=== PATIENT | male | born 1955 | race Caucasian/White ===

== ENCOUNTER 2019-10-26 17:28 | Emergency (ER) | payer MEDICARE ==
--- NOTE | 2019-10-26 17:51 | ERPHSYRPT ---
- History of Present Illness Time Seen by Provider: 10/26/19 17:40 Source: patient Exam Limitations: no limitations Patient Subjective Stated Complaint: pt here for pain to left rib area today, sudden onset, no injury Triage Nursing Assessment: pt alert, walked in, resp easy, skin w/d/p. no brusing or rash noted Physician History: This is a 64-year-old white male with known renal failure who took himself off his carvedilol medication and then discussed with his sales account leader last week, now presents to the emergency department with left posterior lateral rib pain. Patient denies anterior chest pain. Patient denies injury. Patient is scheduled for aortic valve replacement this coming Thursday. He denies shortness of breath, cough and he denies fever. He desires a chest x-ray. Patient states that he is not concerned about his rapid heart rate and states that this is expected per him and his sales account leader because of him stopping the carvedilol medication. Timing/Duration: day(s) (3) Severity: mild Associated Symptoms: denies symptoms Allergies/Adverse Reactions: No Known Drug Allergies Allergy (Unverified 10/26/19 17:39) Home Medications: Albuterol Sulfate [Albuterol Sulfate Hfa] 1 ea DAILY 10/26/19 [History] Apixaban [Eliquis] 1 ea DAILY 10/26/19 [History] Diphenoxylate HCl/Atropine [Diphenoxylate-Atrop 2.5-0.025] 1 ea DAILY 10/26/19 [History] Folic Acid/Vit B Complex and C [Dialyvite Tablet] 1 ea DAILY 10/26/19 [History] Hydralazine HCl 50 mg PO DAILY 10/26/19 [History] Meclizine HCl 25 mg [Antivert 25 mg] 1 ea BID 10/26/19 [History] Omeprazole 1 ea DAILY 10/26/19 [History] Sevelamer Carbonate 1 ea DAILY 10/26/19 [History] Hx Influenza Vaccination/Date Given: Yes Hx Pneumococcal Vaccination/Date Given: Yes Immunizations Up to Date: Yes Travel Risk - International Travel Have you traveled outside of the country in past 3 weeks: No - Coronavirus Screening Are you exhibiting any of the following symptoms?: No Close contact with a COVID-19 positive Pt in past 14-21 Days: No - Review of Systems Constitutional: No Symptoms Eyes: No Symptoms Ears, Nose, & Throat: No Symptoms Respiratory: No Symptoms Cardiac: No Symptoms Abdominal/Gastrointestinal: No Symptoms Genitourinary Symptoms: No Symptoms Musculoskeletal: Other (Localized left posterior lateral rib pain) Skin: No Symptoms Neurological: No Symptoms Psychological: No Symptoms Endocrine: No Symptoms Hematologic/Lymphatic: No Symptoms Immunological/Allergic: No Symptoms All Other Systems: Reviewed and Negative - Past Medical History Neurological History: No Pertinent History ENT History: No Pertinent History Cardiac History: Congestive Heart Failure, Coronary Artery Disease, Hypertension Respiratory History: COPD Endocrine Medical History: No Pertinent History Musculoskeletal History: No Pertinent History GI Medical History: No Pertinent History History: No Pertinent History Psycho-Social History: No Pertinent History Male Reproductive Disorders: No Pertinent History Other Medical History: renal failure - Past Surgical History Past Surgical History: Yes Neuro Surgical History: No Pertinent History Cardiac: No Pertinent History Respiratory: No Pertinent History Gastrointestinal: No Pertinent History Genitourinary: No Pertinent History Musculoskeletal: No Pertinent History Male Surgical History: No Pertinent History Other Surgical History: fistula placement,righ thand - Social History Smoking Status: Current every day smoker Exposure to second hand smoke: Yes Drug Use: none Patient Lives Alone: No - Nursing Vital Signs Nursing Vital Signs: Initial Vital Signs Temperature 98.1 F 10/26/19 17:34 Pulse Rate 125 H 10/26/19 17:34 Respiratory Rate 18 10/26/19 17:34 Blood Pressure 116/77 10/26/19 17:34 O2 Sat by Pulse Oximetry 94 L 10/26/19 17:34 Pain Scale Pain Intensity 2 - Physical Exam General Appearance: no apparent distress, alert, anxiety Eye Exam: PERRL/EOMI, eyes nml inspection Ears, Nose, Throat Exam: normal ENT inspection, moist mucous membranes Neck Exam: normal inspection, non-tender, supple, full range of motion Respiratory Exam: normal breath sounds, lungs clear, airway intact, No chest tenderness, No respiratory distress Cardiovascular Exam: tachycardia Gastrointestinal/Abdomen Exam: soft, normal bowel sounds, No tenderness Rectal Exam: not done Back Exam: normal inspection, normal range of motion, No CVA tenderness Extremity Exam: normal inspection, normal range of motion, pelvis stable Neurologic Exam: alert, oriented x 3, cooperative, reed press feeder II-XII nml as tested, normal mood/affect, nml cerebellar function, nml station & gait, sensation nml Skin Exam: normal color, warm, dry Lymphatic Exam: No adenopathy SpO2 Interpretation: borderline oxygenation SpO2: 94 O2 Delivery: Room Air - Course Nursing assessment & vital signs reviewed: Yes Ordered Tests: Active Orders 24 hr Category Date Time Status CHEST 2 VIEWS (PA AND LAT) Stat Exams 10/26/19 17:48 Taken - Progress Progress: unchanged Progress Note: 10/26/19 18:36 Chest x-ray shows bilateral pleural effusions that are small. No rib fractures and no evidence of infiltrate. 10/26/19 18:37 I reviewed the x-ray findings with this patient. I spoke about his rapid heart rate again with him. He states he is not concerned about his rapid heart rate. He will call his sales account leader and heart surgeon as well as his primary care doctor tomorrow. Counseled pt/family regarding: diagnosis, need for follow-up, rad results - Departure Departure Disposition: Home Clinical Impression: Bilateral pleural effusion, Tachycardia Condition: Stable Critical Care Time: No Referrals: JARRELL RIDDLE [Primary Care Provider] - Additional Instructions: Call your primary care doctor and your cardiac surgeon tomorrow morning to make them aware of your symptoms and the findings on your chest x-ray as well as your heart rate being elevated.
[2019-10-26 18:51] VITALS: BP 114/74; PULSE 110; O2SAT 99
--- NOTE | 2019-10-27 08:53 | XRAY ---
Indication: Left rib pain. No known injury. Comparison: April 01, 2016. PA/lateral chest remains hyperinflated again with scattered tiny calcified granulomas. New small bibasilar atelectasis/effusions. Heart is not enlarged. Bony thorax intact again with mild osteopenia.
== END 2019-10-26 18:51 | disposition home or self-care (01) ==
LOC: ED 17:28
DX: R00.0 Tachycardia, unspecified (principal)
CPT/HCPCS: 71046; 99283

== ENCOUNTER 2020-03-27 05:58 | Day surgery (SDC) | payer MEDICARE ==
[2020-03-27] MEDS ORDERED: Sodium Chloride 0.9% 500 ML 500 ML IV SCH (06:30)
[2020-03-27 07:56] LABS: Absolute Neutrophil Ct (ANC) 6.23 (1.4-6.9); BASOPHIL % 0.6 % (0.0-0.4); Basophil (Absolute #) 0.05 (0-0.4); Eosinophil % 4.8 % (0.00-5.0); Eosinophil (Absolute #) 0.42 (0-0.5); Hematocrit 28.4 % (42-50); Hemoglobin 8.5 gm/dl (12.5-18.0); Lymphocytes % 13.8 % (24.0-44.0); Mean Cell Volume 105.6 fl (78-100); Mean Corpuscular Hemoglobin 31.6 pg (26-32); Mean Corpuscular Hgb Concent. 29.9 g/dl (32-36); Monocyte (Absolute #) 0.82 (0.0-1.3); Monocytes % 9.4 % (0.0-12.0); Neutrophil % 71.4 % (36.0-66.0); Platelet Count 212 K/mm3 (150-450); Red Blood Count 2.69 M/mm3 (4.1-5.6); White Blood Count 8.7 K/mm3 (4.0-10.5)
[2020-03-27] MEDS ORDERED: DIPRIVAN 200 MG/20 ML IV ONE (08:23)
[2020-03-27 09:03] VITALS: O2SAT 93
[2020-03-27 09:13] VITALS: BP 162/88; PULSE 88
--- NOTE | 2020-03-27 09:44 | OP ---
SURGERY DATE/TIME: 03/27/2020 0809 PREOPERATIVE DIAGNOSES: 1) Anemia. 2) Renal failure. 3) Blood in the stool. POSTOPERATIVE DIAGNOSES: Mild gastritis. PROCEDURE: Esophagogastroduodenoscopy. SURGEON: Dr. Bolanos. ANESTHESIA: Medications were given by the anesthesia department. BRIEF HISTORY: The patient is a 64 year old white male patient now having problems with anemia. He is having renal dialysis but also noticed that he had some blood in his stool. It was felt the patient needed to have endoscopic evaluation. We are going to initially start with an EGD to avoid the prep with somebody on renal dialysis unless we needed to. The patient was appraised of the risks of the procedure including the risk of perforation, phlebitis, untoward reaction to medication, bleeding and missed lesions. The patient verbalized his understanding and desired to have the procedure performed. DESCRIPTION OF PROCEDURE: The patient was given the medications by the anesthesia department. He had continuous pulse oximetry, ECG monitoring, intermittent blood pressure monitoring and tidal CO2 monitoring during the examination. He was placed in the left lateral decubitus position. A bite block was placed. The flexible Olympus gastroscope was used to intubate the oropharynx. A view of the larynx was obtained and was normal. The scope was easily introduced in the esophagus which was normal throughout its length. The stomach was entered where normal gastric rugal folds were seen and these distended nicely with insufflation of air. The scope was passed along the greater curvature of the stomach to the antrum. The pylorus was encountered and intubated. Duodenum inspected and found to be normal. The scope is withdrawn towards the stomach. A retroflex view was obtained of the lesser curvature, fundus and cardia regions of the stomach and these appeared to be essentially normal as well. The scope was then redirected towards the gastric antrum and no erosions or ulcerations were noted. The scope was then removed from the patient who tolerated the procedure well and was sent back to outpatient recovery in good condition.
[2020-03-27 10:06] LABS: Slide Review 1 YES
== END 2020-03-27 09:25 | disposition home or self-care (01) ==
LOC: SDC 05:58
PROVIDERS: ATTEND Family Medicine
DX: K29.70 Gastritis, unspecified, without bleeding (principal); D64.9 Anemia, unspecified; N19 Unspecified kidney failure; K92.1 Melena; I10 Essential (primary) hypertension; Z79.899 Other long term (current) drug therapy
CPT/HCPCS: 36415; 85025; 93005; J2704